=== PATIENT | male | born 1955 | race Caucasian/White ===

== ENCOUNTER 2020-01-29 15:18 | Emergency (ER) | payer MEDICARE, OTHER ==
[2020-01-29] MEDS ORDERED: Lidocaine 1% w/Epinephrine 1:100K 20 ML VIAL ONE (16:02)
== END 2020-01-29 15:55 | disposition home or self-care (01) ==
LOC: MADERS 15:18
DX: S81.812A Laceration without foreign body, left lower leg, initial encounter (principal); F17.210 Nicotine dependence, cigarettes, uncomplicated; W29.3XXA Contact with powered garden and outdoor hand tools and machinery, initial encounter
CPT/HCPCS: 12002

== ENCOUNTER 2024-01-23 20:16 | Emergency (ER) | payer MEDICARE, OTHER ==
[2024-01-23] MEDS ORDERED: Aspirin Chewable 81 MG TAB ONE (20:48)
[2024-01-23 20:49] LABS: #Basophils 0.1 thou/uL (0.0-0.2); #Eosinphils 0.2 thou/uL (0.0-0.7); #Lymphocytes 2.8 thou/uL (1.20-3.40); #Monocytes 0.4 thou/uL (0.11-0.59); #Neutrophils 3.3 thou/uL (1.40-6.50); %Basophils 1.1 % (0.0-1.0); %Eosinophils 2.3 % (0.0-10.0); %Lymphocytes 42.6 % (21.0-51.0); %Monocytes 5.2 % (0.0-10.0); %Neutrophils 48.8 % (42.0-75.0); Hematocrit 45.1 % (42.0-52.0); Hemoglobin 14.3 g/dL (14.0-18.0); Mean Corpuscular HGB CONC 31.6 g/dL (32.0-36.0); Mean Corpuscular Hemoglobin 30.4 pg (27.0-31.0); Mean Corpuscular Volume 96.2 fl (78.0-98.0); Mean Platelet Volume 6.8 fL (7.4-10.4); Platelet Count 226 10x3/uL (130-400); RBC Distribution Width 11.7 % (11.5-14.5); Red Blood Cell (RBC) Count 4.69 mill/uL (4.70-6.10); White Blood Cell (WBC) Count 6.7 10x3/uL (4.8-10.8)
[2024-01-23 21:08] LABS: ALT (SGPT) 11 U/L (8-55); AST (SGOT) 14 U/L (5-34); Albumin 4.2 g/dL (3.4-4.8); Alkaline Phosphatase 53 U/L (40-110); Anion Gap 15 mmol/L (10-20); BUN (Urea Nitrogen) 16 mg/dL (8.4-25.7); Bilirubin, Total 0.3 mg/dL (0.2-1.2); CK (CPK) 36 U/L (30-200); Calc. Creatinine Clearance 0 mL/min (70-130); Calcium 9.3 mg/dL (7.8-10.44); Carbon Dioxide 24 mmol/L (23-31); Chloride 104 mmol/L (98-107); Estimated GFR 67; Globulin 2.5 g/dL (2.4-3.5); Glucose 127 mg/dL (80-115); Potassium 3.9 mmol/L (3.5-5.1); Protein, Total 6.7 g/dL (5.8-8.1); Sodium 139 mmol/L (136-145)
[2024-01-23 21:10] LABS: Troponin I Less than 0.010 ng/mL (< 0.028)
[2024-01-23 23:07] LABS: Troponin I Less than 0.010 ng/mL (< 0.028)
[2024-01-24] MEDS ORDERED: fentaNYL 50 mcg/mL 1 mL Vial ONE (00:14)
[2024-01-24 01:42] LABS: Troponin I Less than 0.010 ng/mL (< 0.028)
== END 2024-01-24 01:16 | disposition short-term general hospital (02) ==
LOC: MADERS 20:16
DX: R55 Syncope and collapse (principal); R07.9 Chest pain, unspecified; I10 Essential (primary) hypertension; F17.210 Nicotine dependence, cigarettes, uncomplicated; Z55.6 Problems related to health literacy; Z79.899 Other long term (current) drug therapy
CPT/HCPCS: 71045; 80053; 82550; 83880; 84484; 85025; 93005; 96361; 96374; J3010

== ENCOUNTER 2025-04-30 17:36 | Emergency (ER) | payer MEDICARE, OTHER ==
[2025-04-30] MEDS ORDERED: Acetaminophen 325 MG TAB ONE (18:16)
[2025-04-30] MEDS ORDERED: Bacitracin 1 PK ONE (18:17)
[2025-04-30] MEDS ORDERED: HYDROcodone/Acetaminophen 10/325 mg Tablet ONE (18:17)
[2025-04-30] MEDS ORDERED: Boostrix 0.5 ML (Tdap) VIAL (>/=7 yrs of age) ONE (18:17)
== END 2025-04-30 19:04 | disposition home or self-care (01) ==
LOC: MADERS 17:36
DX: S97.82XA Crushing injury of left foot, initial encounter (principal); S93.402A Sprain of unspecified ligament of left ankle, initial encounter; S80.812A Abrasion, left lower leg, initial encounter; Z23 Encounter for immunization; W23.2XXA Caught, crushed, jammed or pinched between a moving and stationary object, initial encounter
CPT/HCPCS: 90471; 90715